=== PATIENT | female | born 1935 | race Caucasian/White ===

== ENCOUNTER 2017-05-23 14:13 | Emergency (ER) | payer BC, OTHER ==
[~2017-05-23] VITALS: Ht 160 cm; Wt 58.2 kg
[2017-05-23 14:34] VITALS: Ht 160 cm; Wt 58.2 kg
[2017-05-23] MEDS ORDERED: FAMOTIDINE 20 MG TAB PO STA (15:19)
--- NOTE | 2017-05-23 15:21 | ERD ---
ER Documentation Chief Complaint Chief Complaint MID EPIGASTRIC PAIN WITH RADIATING PAIN TO THE STOMACH HPI Patient is an 81-year-old female who presents with gradual onset, intermittent, moderate, dull pain from her epigastrium to her umbilicus for the last 8 months. She states that she had an episode today that is lasted for hours. Previous episodes last approximately 20 minutes. She denies nausea or vomiting , denies fever, denies back pain. She denies dysuria. She reports constipation. Last bowel movement was yesterday. ROS All systems reviewed and are negative except as per history of present illness. Medications Home Meds Active Scripts Polyethylene Glycol* (Miralax*) 17 Gm Powd.pack, 17 GM PO DAILY, #5 PACKET Prov:TORO HOGAN MD 05/23/17 Famotidine* (Famotidine*) 20 Mg Tablet, 20 MG PO DAILY, #30 TAB Prov:TORO HOGAN MD 05/23/17 Allergies Allergies: Coded Allergies: Penicillins (Verified Allergy, Unknown, 05/23/17) PMhx/Soc Past medical history: None Past surgical history: , cataract surgery Social history: Denies tobacco or alcohol History of Surgery: Yes () Anesthesia Reaction: No Hx Neurological Disorder: No Hx Respiratory Disorders: No Hx Cardiac Disorders: No Hx Psychiatric Problems: No Hx Miscellaneous Medical Probl: No Hx Alcohol Use: No Hx Substance Use: No Hx Tobacco Use: No Smoking Status: Never smoker FmHx Family History: No coronary disease, No diabetes Physical Exam Vitals Vital Signs Date Time Temp Pulse Resp B/P Pulse Ox O2 Delivery O2 Flow Rate FiO2 05/23/17 17:51 98.2 75 17 129/61 99 Room Air 05/23/17 14:34 98.2 79 20 157/67 99 Physical Exam Const: Alert, no acute distress Head: Atraumatic Eyes: Normal Conjunctiva ENT: Normal External Ears, Nose and Mouth. Neck: Full range of motion..~ No meningismus. Resp: Clear to auscultation bilaterally Cardio: Regular rate and rhythm, no murmurs Abd: Soft, non tender, non distended. No guarding or rebound Skin: No petechiae or rashes Back: No midline or flank tenderness Ext: No cyanosis, or edema Neur: Awake and alert, Cranial nerves II through XII intact bilaterally, strength and sensation full in 4 extremities. Psych: Normal Mood and Affect Result Diagram: 05/23/17 1520 05/23/17 1520 Results 24 hrs Laboratory Tests Test 05/23/17 15:20 White Blood Count 8.910^3/ul Red Blood Count 4.5210^6/ul Hemoglobin 13.2g/dl Hematocrit 39.3% Mean Corpuscular Volume 86.9fl Mean Corpuscular Hemoglobin 29.2pg Mean Corpuscular Hemoglobin Concent 33.6g/dl Red Cell Distribution Width 14.6% Platelet Count 73619^3/UL Mean Platelet Volume 10.9fl Neutrophils % 68.9% Lymphocytes % 21.8% Monocytes % 6.2% Eosinophils % 1.9% Basophils % 1.0% Nucleated Red Blood Cells % 0.0/100WBC Neutrophils # 6.110^3/ul Lymphocytes # 1.910^3/ul Monocytes # 0.610^3/ul Eosinophils # 0.210^3/ul Basophils # 0.110^3/ul Nucleated Red Blood Cells # 0.010^3/ul Urine Color YELLOW Urine Clarity CLEAR Urine pH 5.0 Urine Specific [place] 1.020 Urine Ketones NEGATIVEmg/dL Urine Nitrite NEGATIVEmg/dL Urine Bilirubin NEGATIVEmg/dL Urine Urobilinogen NEGATIVEmg/dL Urine Leukocyte Esterase 1+Kanu/ul Urine Microscopic RBC 1/HPF Urine Microscopic WBC 2/HPF Urine Mucus FEW/HPF Urine Hemoglobin NEGATIVEmg/dL Urine Glucose NEGATIVEmg/dL Urine Total Protein NEGATIVEmg/dl Sodium Level 145mmol/L Potassium Level 4.2mmol/L Chloride Level 107mmol/L Carbon Dioxide Level 28mmol/L Anion Gap 14 Blood Urea Nitrogen 17mg/dl Creatinine 0.83mg/dl Glucose Level 89mg/dl Calcium Level 9.0mg/dl Total Bilirubin 0.2mg/dl Direct Bilirubin 0.00mg/dl Indirect Bilirubin 0.2mg/dl Aspartate Amino Transf (AST/SGOT) 19IU/L Alanine Aminotransferase (ALT/SGPT) 29IU/L Alkaline Phosphatase 104IU/L Total Protein 7.7g/dl Albumin 4.5g/dl Globulin 3.20g/dl Albumin/Globulin Ratio 1.40 Lipase 177U/L Current Medications Medications (Trade) Dose Ordered Sig/[place] Route PRN Reason Start Time Stop Time Status Last Admin Dose Admin Famotidine (Pepcid) 20 mg ONCE STAT PO 05/23/17 15:19 05/23/17 15:20 DC 05/23/17 16:11 Procedures/MDM EKG read by me: Time 1528, rate 74 Rhythm: Normal sinus [place]: Normal Intervals: Normal ST-T waves: no ischemic changes Ectopy: No Q-waves: No Impression: No evidence of ischemia or arrhythmia MDM: Patient is an 81-year-old female who presents with intermittent abdominal pain for several months. Today the pain has been constant for several hours. She has a relatively benign exam and unremarkable labs. She was given Pepcid and on reassessment states that her pain has resolved. Her pain is not concerning for coronary ischemia and her EKG is nonischemic. I will discharge her with Pepcid and MiraLAX for constipation, and advised her on return precautions and need for outpatient follow-up with rail specialist due to recurrence of pain. Departure Diagnosis: Primary Impression: Abdominal pain Abdominal location: epigastric Qualified Code: R10.13 - Epigastric pain Condition: TORO Canales MD May 23, 2017 15:21
[2017-05-23 15:57] LABS: BASOPHIL # 0.1 10^3/ul (0.0-0.1); EOSINOPHILS # 0.2 10^3/ul (0.0-0.5); EOSINOPHILS % 1.9 % (0.0-7.0); HEMATOCRIT 39.3 % (37.0-47.0); HEMOGLOBIN 13.2 g/dl (12.0-16.0); LYMPHOCYTES # 1.9 10^3/ul (0.8-2.9); LYMPHOCYTES % 21.8 % (15.0-51.0); MEAN CORPUSCULAR HEMOGLOBIN 29.2 pg (29.0-33.0); MEAN CORPUSCULAR HGB CONC 33.6 g/dl (32.0-37.0); MEAN CORPUSCULAR VOLUME 86.9 fl (82.0-101.0); MEAN PLATELET VOLUME 10.9 fl (7.4-10.4); MONOCYTE # 0.6 10^3/ul (0.3-0.9); MONOCYTES % 6.2 % (0.0-11.0); NEUTROPHIL # 6.1 10^3/ul (1.6-7.5); NEUTROPHILS % 68.9 % (39.0-77.0); PLATELET COUNT 242 10^3/UL (140-415); RED BLOOD COUNT 4.52 10^6/ul (4.20-5.40); RED CELL DISTRIBUTION WIDTH 14.6 % (11.5-14.5); WHITE BLOOD COUNT 8.9 10^3/ul (4.8-10.8)
[2017-05-23 16:04] LABS: ADD UMIC YES; UR ASCORBIC ACID 40 mg/dL (NEGATIVE); UR BILIRUBIN (Dip) NEGATIVE (NEGATIVE); UR BLOOD (Dip) NEGATIVE (NEGATIVE); UR CLARITY CLEAR (CLEAR); UR COLOR YELLOW (YELLOW); UR GLUCOSE (Dip) NEGATIVE (NEGATIVE); UR KETONES (Dip) NEGATIVE (NEGATIVE); UR LEUKOCYTE ESTERASE (Dip) 1+ Leu/ul (NEGATIVE); UR MUCUS FEW /HPF (NONE SEEN); UR NITRITE (Dip) NEGATIVE (NEGATIVE); UR RBC 1 /HPF (0-5); UR TOTAL PROTEIN (Dip) NEGATIVE (NEGATIVE); UR UROBILINOGEN (Dip) NEGATIVE (NEGATIVE)
[2017-05-23 16:14] LABS: ALBUMIN 4.5 g/dl (3.3-4.9); ALBUMIN/GLOBULIN RATIO 1.4; BILIRUBIN,INDIRECT 0.2 mg/dl (0-1.1); BILIRUBIN,TOTAL 0.2 mg/dl (0.2-1.3); CREATININE 0.83 mg/dl (0.44-1.00); POTASSIUM 4.2 mmol/L (3.5-5.1); TOTAL PROTEIN 7.7 g/dl (6.1-8.1)
--- NOTE | 2017-05-23 16:23 | RADRPT ---
PROCEDURE: XR Abdomen. CLINICAL INDICATION: Abdomen pain. TECHNIQUE: AP supine abdomen x-ray. COMPARISON: None. FINDINGS: The bowel gas pattern is normal. There is no evidence of obstruction. There are no abnormal calcifications overlying the urinary tracts. There are degenerative changes of the spine and hips. IMPRESSION: 1. Degenerative changes of the spine and hips. 2. Otherwise unremarkable abdomen radiograph. RPTAT: QQ .Jensen Barahona MD, MD Date Time Electronically viewed and signed by .Jensen Barahona MD, MD on 05/23/2017 16:23 .R/
[2017-05-23] MEDS ORDERED: POLY17PO6 PO (16:31)
[2017-05-23] MEDS ORDERED: FAMO20TA18 PO (16:31)
[2017-05-23 17:51] VITALS: BP 129/61; PULSE 75; RESP 17; TEMP 98.2
== END 2017-05-23 17:52 | disposition home or self-care (01) ==
LOC: E/R 14:13
DX: R10.13 Epigastric pain (principal)
CPT/HCPCS: 36415; 74000; 80053; 81001; 83690; 85025; 93005; 99285; Z7610